=== PATIENT | male | born 2005 | race Caucasian/White ===

== ENCOUNTER 2025-01-10 21:37 | Emergency (ER) | payer SELFPAY | END 2025-01-10 23:25 | disposition home or self-care (01) | LOC: ERS 21:37 | DX: F10.129 Alcohol abuse with intoxication, unspecified (principal); R11.2 Nausea with vomiting, unspecified; F90.9 Attention-deficit hyperactivity disorder, unspecified type; Z55.6 Problems related to health literacy | CPT/HCPCS: 93005; 96360 ==